=== PATIENT | female | born 1955 | race Caucasian/White ===

== ENCOUNTER → 2020-09-28 14:24 | Outpatient (CLI) | payer OTHER, SELFPAY | PROVIDERS: PCP Family Medicine; Visit Provider Family Medicine | DX: Z20.828 Contact with and (suspected) exposure to other viral communicable diseases (principal); U07.1 COVID-19 | CPT/HCPCS: U0003 ==

== ENCOUNTER 2024-02-19 15:14 | Outpatient (CLI) | payer MEDICARE, SELFPAY | END 2024-02-19 23:59 | disposition home or self-care (01) | LOC: LAB.DROPOF 15:17 | PROVIDERS: PCP Family Medicine; Visit Provider Family Medicine | DX: R19.7 Diarrhea, unspecified (principal); Z53.09 Procedure and treatment not carried out because of other contraindication | CPT/HCPCS: 87506 ==

== ENCOUNTER 2025-02-28 21:23 | Emergency (ER) | payer MEDICARE, SELFPAY ==
[2025-02-28 21:41] VITALS: BP 142/69; PULSE 103; RESP 18; TEMP 36.5; O2SAT 103; BMI 32.8
--- NOTE | 2025-02-28 21:46 | ED_ITS ---
Discharge Plan Disposition Patient Disposition: Home, Self-Care Prescriptions Prescriptions: New ondansetron 4 mg tablet,disintegrating 4 mg PO Q6H PRN (Reason: nausea and vomiting) Qty: 10 0RF Referrals Follow up/Referrals: Haylie Srinivasan MD [Primary Care Provider] - See instructions Activity Restrictions/Add. Instructions Additional Instructions/Restrictions: Call your family doctor to establish care for this visit to the emergency department and schedule follow-up within 48 hours to ensure improvement. If you have any worsening of your condition or any other concerning signs or symptoms, return to the emergency department or your primary care doctor for further evaluation. Zofran every 6 hours as needed for nausea and vomiting Clinical Impressions Clinical Impression: Gastroenteritis Instructions Patient Instructions: DI for Diarrhea and Traveler's Diarrhea -- Adult, DI for Diarrhea and Traveler's Diarrhea -- Child, DI for Nausea -- Adult, DI for Nausea -- Child Print Language Print Language: Turkmen Discharge ED Provider: Ton Cornelius General Adult HPI <Sarahy Marie (ED), DIRECTOR COMPENSATION - Last Filed: 02/28/25 21:55> General Chief complaint: Nausea/Vomiting/Diarrhea Stated complaint: d/v, lightheaded, passing out, diabetic Time Seen by Provider: 02/28/25 21:37 History of Present Illness HPI narrative: 69-year-old female presents to the ED today for complaint of nausea, vomiting and diarrhea since 3 PM today. She says she thought she had food poisoning with a visitor with her had all the same food that she did and she is not sick. Patient complains of upper abdominal pain as well. Patient does take Mounjaro and takes her shot on Wednesdays. She did take her shot on Saturday but has not had any pain until today at 3:00. Patient does look unwell. Patient has history of diabetes. No other symptoms today. No other complaint of pain. Related Data Previous Rx's ?Medication ?Instructions ?Recorded ondansetron 4 mg disintegrating 4 mg PO Q6H PRN nausea and 02/28/25 tablet vomiting #10 tabs Allergies Allergy/AdvReac Type Severity Reaction Status Date / Time codeine Allergy Unknown Verified 02/28/25 22:01 allergy reaction PFSH <Sarahy Marie (ED), DIRECTOR COMPENSATION - Last Filed: 02/28/25 21:55> [facility] Disclaimer: The information contained in this section may have been updated after the patient was seen, as this information can be updated by other users. Social History (Updated 02/28/25 @ 21:55 by Sarahy Marie (ED), DIRECTOR COMPENSATION) Smoking Status: Never smoker alcohol intake: never current occupational status: employed Travel in the last 8 weeks?: None Have you lived/traveled outside [place] in past 30 days?: No Contact w/someone who lives/traveled outside [place] past 30 days?: No Exposure to someone with infectious disease in past 14 days?: No Do you have a fever (greater than 100.4 F or 38 C)?: No Have you tested positive for COVID-19?: No Exposed to someone with COVID-19 in past 14 days?: No Do you have a sore throat?: No Do you have a cough?: No Do you have any weakness?: No Do you have any diarrhea?: No Are you experiencing any unusual bleeding?: No Do you have any muscle aches/pain?: No Do you have any abdominal pain?: No Are you experiencing loss of taste or smell?: No <Sarahy Marie (ED), DIRECTOR COMPENSATION - Last Filed: 02/28/25 21:55> ROS Obtained: Yes Systems reviewed as appropriate & no additional complaints except as documented Constitutional Constitutional: Reports as per HPI Physical Exam <Sarahy Marie (ED), DIRECTOR COMPENSATION - Last Filed: 02/28/25 21:55> General General appearance: alert and in distress Head Head exam: normocephalic Eye Eye exam: Present PERRL and EOMI ENT ENT exam: Present normal oropharynx and mucous membranes moist Neck Neck exam: Present full ROM and trachea midline Respiratory Respiratory exam: Present normal lung sounds bilaterally Cardiovascular Cardiovascular exam: Present regular rate, normal rhythm, normal heart sounds, +S1 and +S2 Abdominal Exam Abdominal exam: Present soft, tenderness and normal bowel sounds Abdominal tenderness: Present diffuse Extremities Exam Extremities exam: Present full ROM and normal capillary refill Neurological Exam Neurological exam: Present alert, oriented X3 and normal gait Skin Skin exam: Present warm, dry and intact Medical Decision Making <Sarahy Marie (ED), DIRECTOR COMPENSATION - Last Filed: 02/28/25 21:55> Medical Records Screening: Per USPSTF and CDC recommendations, given the prevalence of disease in our region, it is our hospital?s policy to screen for HIV and viral Hepatitis for all patients aged 18 and over and those with ongoing risk factors. Bogdan Inquiry Pt receiving controlled substance: No Bogdan was queried for this patient: No Vital Signs: 02/28/25 21:41 02/28/25 22:00 02/28/25 22:30 Temperature 97.7 F Temperature Source Oral Pulse Rate 98 H 97 H Pulse Rate [Left] 103 H Respiratory Rate 18 Blood Pressure 141/86 H 164/84 H Blood Pressure [Right Arm] 142/69 H Blood Pressure Mean 102 Blood Pressure Mean [Right Arm] 93 Blood Pressure Source [Right Arm] Automatic Cuff Blood Pressure Position [Right Arm] Supine 02 Sat by Pulse Oximetry 103 H 98 95 Oxygen Delivery Method Room Air Lab Data Lab Results 02/28/25 22:03: WBC 11.5 H, RBC 5.14, Hgb 15.5, Hct 45.0, MCV 87.5, MCH 30.2, MCHC 34.4, RDW 13.1, Plt Count 234, MPV 11.4 H, Neut % (Auto) 90.7 H, Lymph % (Auto) 3.6 L, Mclennan % (Auto) 4.5, Eos % (Auto) 0.6, Baso % (Auto) 0.3, Neut # (Auto) 10.4 H, Lymph # (Auto) 0.4 L, Mclennan # (Auto) 0.5, Eos # (Auto) 0.1, Baso # (Auto) 0.0, Total Counted 100, Neutrophils % (Manual) 90 H, Lymphocytes % (Manual) 5 L, Monocytes % (Manual) 5, Platelet Estimate Normal, RBC Morphology Normal, Sodium 138, Potassium 3.5, Chloride 102, Carbon Dioxide 27, Anion Gap 12.5, BUN 23 H, Creatinine 0.70, Estimated Creat Clear 68, Estimated GFR 83, Est GFR ( Amer) 101, Glucose 172 H, Calcium 9.4, Magnesium 1.3 L, Total Bilirubin 1.0, AST 44 H, ALT 30, Alkaline Phosphatase 103, Troponin I < 0.01, Total Protein 7.8, Albumin 4.6, Globulin 3.2, Albumin/Globulin Ratio 1.4, Lipase 114 02/28/25 22:03 02/28/25 22:03 Orders (Tests/Meds): ED MEDICATIONS Generic Name Dose Route Start Last Admin Trade Name Frealvaro PRN Reason Stop Dose Admin Sodium Chloride 8 ml 02/28/25 21:42 02/28/25 22:02 Sodium Chloride 0.9% 10ml Vial IV 03/30/25 21:41 8 ml NEEDED PRN Administration dilute pepcid Discontinued Medications Generic Name Dose Route Start Last Admin Trade Name Freq PRN Reason Stop Dose Admin Famotidine 20 mg 02/28/25 21:42 02/28/25 22:02 Famotidine 20mg/2ml Vial IV 02/28/25 21:43 20 mg ONCE ONE Administration Sodium Chloride 1,000 mls @ 999 mls/hr 02/28/25 21:42 02/28/25 22:02 Sod Chlor 0.9% 1000ml Bag IV 02/28/25 22:42 999 mls/hr .Q1H1M ONE Administration Ketorolac Tromethamine 30 mg 02/28/25 21:45 02/28/25 22:02 Ketorolac 30mg/Ml Vial IV 02/28/25 21:46 30 mg ONCE ONE Administration Ondansetron HCl 4 mg 02/28/25 21:42 02/28/25 22:02 Ondansetron 4mg/2ml Vial IV 02/28/25 21:43 4 mg ONCE ONE Administration ORDERS Category Date Time Status CBC [Complete Blood Count Auto Diff] Stat Lab 02/28/25 22:03 Completed Comprehensive Metabolic Panel Stat Lab 02/28/25 22:03 Completed Full Resp Panel w/COVID ([facility]) Routine Lab 02/28/25 22:11 Ordered Lipase Stat Lab 02/28/25 22:03 Completed Magnesium Stat Lab 02/28/25 22:03 Completed Trop I [Troponin I] Stat Lab 02/28/25 22:03 Completed Troponin I Q3H Lab 03/01/25 00:45 Ordered Troponin I Q3H Lab 03/01/25 03:45 Ordered Medical Decision Narrative: This is a 69-year-old female who presents to the ED today for evaluation of nausea, vomiting and diarrhea since about 3 PM today. She had some navy beans and potato salad and thought that she may have food poisoning. Patient arrives appearing ill. Vitals are stable and afebrile. Patient initial workup will include labs, respiratory panel. We will wait to decide on the imaging once labs return. Discussed plan with Dr. Cornelius as I am leaving for the shift. Patient will be taken over by him. Patient stable at this time. <Ton Cornelius MD - Last Filed: 02/28/25 23:25> Vital Signs: 02/28/25 21:41 02/28/25 22:00 02/28/25 22:30 Temperature 97.7 F Temperature Source Oral Pulse Rate 98 H 97 H Pulse Rate [Left] 103 H Respiratory Rate 18 Blood Pressure 141/86 H 164/84 H Blood Pressure [Right Arm] 142/69 H Blood Pressure Mean 102 Blood Pressure Mean [Right Arm] 93 Blood Pressure Source [Right Arm] Automatic Cuff Blood Pressure Position [Right Arm] Supine 02 Sat by Pulse Oximetry 103 H 98 95 Oxygen Delivery Method Room Air Lab Data Lab Results 02/28/25 22:03: WBC 11.5 H, RBC 5.14, Hgb 15.5, Hct 45.0, MCV 87.5, MCH 30.2, MCHC 34.4, RDW 13.1, Plt Count 234, MPV 11.4 H, Neut % (Auto) 90.7 H, Lymph % (Auto) 3.6 L, Mclennan % (Auto) 4.5, Eos % (Auto) 0.6, Baso % (Auto) 0.3, Neut # (Auto) 10.4 H, Lymph # (Auto) 0.4 L, Mclennan # (Auto) 0.5, Eos # (Auto) 0.1, Baso # (Auto) 0.0, Total Counted 100, Neutrophils % (Manual) 90 H, Lymphocytes % (Manual) 5 L, Monocytes % (Manual) 5, Platelet Estimate Normal, RBC Morphology Normal, Sodium 138, Potassium 3.5, Chloride 102, Carbon Dioxide 27, Anion Gap 12.5, BUN 23 H, Creatinine 0.70, Estimated Creat Clear 68, Estimated GFR 83, Est GFR ( Amer) 101, Glucose 172 H, Calcium 9.4, Magnesium 1.3 L, Total Bilirubin 1.0, AST 44 H, ALT 30, Alkaline Phosphatase 103, Troponin I < 0.01, Total Protein 7.8, Albumin 4.6, Globulin 3.2, Albumin/Globulin Ratio 1.4, Lipase 114 Orders (Tests/Meds): ED MEDICATIONS Generic Name Dose Route Start Last Admin Trade Name Frealvaro PRN Reason Stop Dose Admin Sodium Chloride 8 ml 02/28/25 21:42 02/28/25 22:02 Sodium Chloride 0.9% 10ml Vial IV 03/30/25 21:41 8 ml NEEDED PRN Administration dilute pepcid Discontinued Medications Generic Name Dose Route Start Last Admin Trade Name Freq PRN Reason Stop Dose Admin Famotidine 20 mg 02/28/25 21:42 02/28/25 22:02 Famotidine 20mg/2ml Vial IV 02/28/25 21:43 20 mg ONCE ONE Administration Sodium Chloride 1,000 mls @ 999 mls/hr 02/28/25 21:42 02/28/25 22:02 Sod Chlor 0.9% 1000ml Bag IV 02/28/25 22:42 999 mls/hr .Q1H1M ONE Administration Ketorolac Tromethamine 30 mg 02/28/25 21:45 02/28/25 22:02 Ketorolac 30mg/Ml Vial IV 02/28/25 21:46 30 mg ONCE ONE Administration Ondansetron HCl 4 mg 02/28/25 21:42 02/28/25 22:02 Ondansetron 4mg/2ml Vial IV 02/28/25 21:43 4 mg ONCE ONE Administration ORDERS Category Date Time Status CBC [Complete Blood Count Auto Diff] Stat Lab 02/28/25 22:03 Completed Comprehensive Metabolic Panel Stat Lab 02/28/25 22:03 Completed Full Resp Panel w/COVID ([facility]) Routine Lab 02/28/25 22:11 Ordered Lipase Stat Lab 02/28/25 22:03 Completed Magnesium Stat Lab 02/28/25 22:03 Completed Trop I [Troponin I] Stat Lab 02/28/25 22:03 Completed Troponin I Q3H Lab 03/01/25 00:45 Ordered Troponin I Q3H Lab 03/01/25 03:45 Ordered Medical Decision Narrative: This is a 69-year-old female who presents to the ED today for evaluation of nausea, vomiting and diarrhea since about 3 PM today. She had some navy beans and potato salad and thought that she may have food poisoning. Patient arrives appearing ill. Vitals are stable and afebrile. Patient initial workup will include labs, respiratory panel. We will wait to decide on the imaging once labs return. Discussed plan with Dr. Cornelius as I am leaving for the shift. Patient will be taken over by him. Patient stable at this time. I was consulted by the MARGY, and we discussed the complexity of the problems being addressed. I approved the treatment and management plan for this patient's care in the Emergency Department, thus performing a substantive portion of the medical decision making. On my evaluation, patient states she is feeling much better, ready to go. I feel this is appropriate. Hemodynamically stable and very pleasant. Independent interpretation of workup with mild leukocytosis, otherwise nonactionable findings on labs. Because patient at baseline without signs or symptoms of clinical decompensation, deemed appropriate for discharge. Results were relayed to patient who voiced understanding and were agreeable to outpatient management and follow up. I discussed my clinical impression with patient and answered all questions. At this time, the evidence for any other entities in the differential is insufficient to warrant any further testing or ED observation. This was explained as well. Advisory was given that persistent or worsening symptoms require further evaluation. I confirmed the understanding of this discussion. Ton Cornelius MD Critical Care <Sarahy Marie (ED), DIRECTOR COMPENSATION - Last Filed: 02/28/25 21:55> Critical Care Time Critical Care Time: No
[2025-02-28 22:00] VITALS: BP 141/86; PULSE 98; O2SAT 98
[2025-02-28] MEDS: SODIUM CHLORIDE 0.9% 10ML VIAL 8 ML IV (22:02)
[2025-02-28] MEDS: KETOROLAC 30MG/ML VIAL 30 MG IV (22:02)
[2025-02-28] MEDS: 0.9 % SODIUM CHLORIDE 1000ML 1,000 ML 999 ML IV (22:02)
[2025-02-28] MEDS: FAMOTIDINE 20MG/2ML VIAL 20 MG IV (22:02)
[2025-02-28] MEDS: ONDANSETRON 4MG/2ML VIAL 4 MG IV (22:02)
[2025-02-28 22:11] LABS: Basophils % 0.3 % (0.1-2.0); Eosinophils # 0.1 Kmm3 (0.0-0.4); Eosinophils % 0.6 % (0.1-12.0); Hemoglobin 15.5 g/dL (12.2-16.2); Immature Granulocytes # 0.04 10^3uL; Immature Granulocytes % 0.3 %; Lymphocytes # 0.4 K/mm3 (0.7-4.5); Lymphocytes % 3.6 % (10-50); Mean Corpuscular HGB Conc 34.4 g/dL (31.8-35.4); Mean Corpuscular Hemoglobin 30.2 pg (27.0-31.2); Mean Corpuscular Volume 87.5 fl (81-99); Mean Platelet Volume 11.4 fl (7.4-10.4); Monocytes # 0.5 K/mm3 (0.1-1.0); Monocytes % 4.5 % (1.7-9.3); Neutrophils # 10.4 K/mm3 (1.8-7.8); Neutrophils % 90.7 % (37.0-80.0); Nucleated Red Blood Cells # 0 10^3/uL; Nucleated Red Blood Cells % 0 %; Platelet Count 234 K/mm3 (142-424); Red Blood Count 5.14 M/mm3 (4.20-5.40); Red Cell Distribution Width 13.1 % (11.5-17.5); Red Cell Distribution Width-SD 41.7 fL; White Blood Count 11.5 K/mm3 (4.8-10.8)
[2025-02-28 22:12] LABS: MANUAL DIFFERENTIAL MANUAL DIFFERENTIAL (MANUAL DIFF)
[2025-02-28 22:21] LABS: Lymphocytes % 5 % (10-50); Monocytes % 5 % (2-9); Neutrophils % 90 % (42-76); Platelet Estimate Normal; RBC Morphology Normal; Total Cells Counted 100
[2025-02-28 22:22] LABS: Albumin Level 4.6 g/dl (3.5-5.0); Chloride 102 mmol/L (98-107); Sodium 138 mmol/L (136-145)
[2025-02-28 22:23] LABS: Potassium 3.5 mmoL/L (3.5-5.1)
[2025-02-28 22:25] LABS: Alanine Aminotransferase 30 U/L (12-78); Albumin/Globulin Ratio 1.4 (1.1-1.8); Alkaline Phosphatase 103 U/L (38-126); Anion Gap 12.5 mEq/L (5-15); Aspartate Amino Transferase 44 U/L (14-36); Blood Urea Nitrogen 23 mg/dl (7-17); Carbon Dioxide 27 mmol/L (22.0-30.0); Creatinine Clearance Estimated 68 mL/min (50-200); Estimated Glomerular Filt Rate 83 ml/min (>60); GFR (African American) 101 ML/MIN (>60); Globulin 3.2 g/dL (1.3-3.2); Total Protein,Serum 7.8 g/dl (6.3-8.2)
[2025-02-28 22:26] LABS: Calcium 9.4 mg/dl (8.4-10.2); Glucose 172 mg/dl (74-100); Lipase 114 U/L (23-300); Magnesium 1.3 mg/dl (1.6-2.3)
[2025-02-28 22:30] VITALS: BP 164/84; PULSE 97; O2SAT 95
[2025-02-28 22:38] LABS: Troponin I < 0.01 ng/ml (0.00-0.034)
[2025-02-28 23:26] VITALS: BP 130/70; PULSE 99; RESP 16; TEMP 36.8; O2SAT 99
== END 2025-02-28 23:31 | disposition home or self-care (01) ==
PROVIDERS: Nurse Practitioner; Emergency Provider Emergency Medicine; PCP Family Medicine
DX: R10.10 Upper abdominal pain, unspecified (principal); R11.2 Nausea with vomiting, unspecified; K52.9 Noninfective gastroenteritis and colitis, unspecified; R42 Dizziness and giddiness; E11.9 Type 2 diabetes mellitus without complications
CPT/HCPCS: 80053; 83690; 83735; 84484; 85007; 85025; 85027; 96361; 96374; 96375; 99284; J1885; J2405; J7030

== ENCOUNTER 2025-04-29 07:45 | Outpatient (CLI) | payer MEDICARE, SELFPAY ==
--- OUTSIDE RECORDS SUMMARY | 2025-04-29 07:46 | XMS_ITS | Clinical Summary ---
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 Name Role Phone Michelle Peraza APRN Primary Care Physician [phone] Conditions or Problems Problem Name Problem Code Onset Date Status Entry Date Provider Comment Standard Description Annotate Noncomplian ce 131000084 (SNOMED CT) 01/01 Active 01/01 Guerda Barry APRN Patient noncompliance - general Body mass index (BMI) 39.0-39.9; adult Z68.39 (ICD-10-CM ) 01/01 Active 01/01 Guerda Barry APRN Body mass index [BMI] 39.0-39.9, adult Body mass index (BMI) 37.0-37.9; adult Z68.37 (ICD-10-CM ) 06/14 Correction 06/14 Guerda Barry APRN Body mass index [BMI] 37.0-37.9, adult Hyperlipide ada 53916661 (SNOMED CT) 06/18 Active 06/18 Michelle Peraza APRN Hyperlipidemia Body mass index (BMI) 37.0-37.9; adult Z68.37 (ICD-10-CM ) 06/14 Removed 06/14 Michelle Peraza APRN Body mass index [BMI] 37.0-37.9, adult Body mass index (BMI) 37.0-37.9; adult Z68.37 (ICD-10-CM ) 06/14 Correction 06/14 Michelle Peraza APRN Body mass index [BMI] 37.0-37.9, adult Abnormal mammogram 713080593 (SNOMED CT) 06/14 Active 06/14 Michelle Stu [employer] Mammography abnormal Body mass index (BMI) 37.0-37.9; adult Z68.37 (ICD-10-CM ) 06/14 Removed 06/14 Michelle Mayeinger [employer] Body mass index [BMI] 37.0-37.9, adult Chlamydia cervicitis 896345436 (SNOMED CT) 11/08 Resolved 11/17 Michelle Mayeinger [employer] Chlamydial cervicitis B12 deficiency 442088699 (SNOMED CT) 11/26 Active 11/26 Elvira Tulsa [employer] Cobalamin deficiency Chlamydia cervicitis 881326983 (SNOMED CT) 11/08 Removed 11/17 Elvira Tulsa [employer] Chlamydial cervicitis Cutaneous candidiasis 52945169 (SNOMED CT) 11/08 Inactive 11/08 Elvira Enid [employer] Candidiasis of skin Hx of anemia 375212247 (SNOMED CT) 11/08 Active 11/08 Elvira Enid [employer] History of anemia Hypertensio n benign essential 0158688 (SNOMED CT) Active Elvira Tulsa [employer] Benign essential hypertension Well woman EXAM PAP/CBE 114904693 (SNOMED CT) 11/08 Inactive 11/08 Elvira Enid [employer] Well female adult Menopausal state 274392072 (SNOMED CT) 11/28 Active 11/28 Elvira Enid [employer] Menopause present Colon cancer screening 973092348 (SNOMED CT) 11/10 Inactive 11/10 Elvira Enid [employer] Screening for malignant neoplasm of colon Colon cancer screening 466167575 (SNOMED CT) 11/10 Removed 11/10 Elvira Tulsa [employer] Screening for malignant neoplasm of colon Followup examination 637286028 (SNOMED CT) 11/10 Inactive 11/10 Elvira Tulsa [employer] History and physical examination, follow-up Cardiopulmo nary arrest 319049409 (SNOMED CT) 11/03 Inactive 11/03 Elvira Enid [employer] Cardiorespirat ory arrest Morbid obesity 759585650 (SNOMED CT) 04/25 Active 04/25 Elvira Rossi APRN Morbid obesity HTN 61858730 (SNOMED CT) Inactive Elvira Rossi APRN Hypertensive disorder Hypertensio n 12453032 (SNOMED CT) Resolved Elvira Rossi APRN Hypertensive disorder DM, uncomplicat ed, type II 807104019 (SNOMED CT) Active Elvira Rossi APRN Type 2 diabetes mellitus without complication Hypertensio n 91123670 (SNOMED CT) Removed Elvira Rossi APRN Hypertensive disorder Medications Medication Instructions Start Date Stop Date Generic Name [facility] Provider JENTADUETO 2.5-1000 MG TABS ONE TAB PO DAILY 01/01 LINAGLIPTIN-METFOR MIN HCL [id number] Guerda Barry APRN JENTADUETO 2.5-1000 MG TABS 01/01 LINAGLIPTIN-METFOR MIN HCL 81343307541 Guerda Barry APRN JENTADUETO XR 5-1000 MG [id number] TAKE ONE TABLET BY MOUTH ONCE DAILY 06/18 LINAGLIPTIN-METFOR MIN HCL 00032033340 Guerda Barry APRN METFORMIN HCL ER 500 MG [id number] TAKE 2 TABLET(S) BY MOUTH BID 06/18 METFORMIN HCL 20226850151 Michelle Peraza APRN ATORVASTATIN CALCIUM 20 MG TABS TAKE 1 TABLET BY MOUTH AT BEDTIME 06/18 ATORVASTATIN CALCIUM 11697069289 Guerda Barry APRN PRAVASTATIN SODIUM 20 MG TABS TAKE 1 TABLET BY MOUTH AT BEDTIME FOR CHOLESTEROL D/C 10 MG DOSE 04/25 PRAVASTATIN SODIUM 95922547273 Michelle Peraza APRN JENTADUETO XR 5-1000 MG [id number] TAKE ONE TABLET BY MOUTH ONCE DAILY 06/18 LINAGLIPTIN-METFOR MIN HCL 00009116780 Michelle Peraza APRN TRADJENTA 5 MG TABS TAKE 1 TAB PO QD 06/18 LINAGLIPTIN 42380370718 Michelle Peraza APRN VITAMIN B-12 1000 MCG TABS TAKE 1 TABLET BY MOUTH ONCE A DAY 06/18 CYANOCOBALAMIN 01783993000 Guerda Barry APRN LISINOPRIL-HYDROCHLO ROTHIAZIDE 10-12.5 MG TABS TAKE 1 TABLET BY MOUTH 1 TIME A DAY 06/14 LISINOPRIL-HYDROCH LOROTHIAZIDE 25508172601 Guerda Barry APRN HYDROCHLOROTHIAZIDE 12.5 MG TABS TAKE 1 TABLET BY MOUTH 1 TIME A DAY 06/14 HYDROCHLOROTHIAZID E 88861000989 Michelle Peraza APRN LISINOPRIL 5 MG TABS TAKE 1 TABLET BY MOUTH 1 TIME A DAY 06/14 LISINOPRIL 11130335462 Michelle Peraza APRN LISINOPRIL 2.5 MG TABS TAKE 1 TABLET BY MOUTH 1 TIME A DAY TAKE WITH 5MG DOSE LISINOPRIL 11/08 LISINOPRIL 79045240081 Michelle Peraza APRN FLUCONAZOLE 200 MG TABS TAKE 1 TABLET BY MOUTH QD X 30 DAYS 11/26 FLUCONAZOLE 51685394853 Elvira Rossi APRN HYDROCHLOROTHIAZIDE 12.5 MG TABS TAKE 1 TABLET BY MOUTH 1 TIME A DAY HYDROCHLOROTHIAZID E 91053021034 Elvira Rossi APRN PRAVASTATIN SODIUM 20 MG TABS TAKE 1 TABLET BY MOUTH AT BEDTIME FOR CHOLESTEROL D/C 10 MG DOSE 04/25 PRAVASTATIN SODIUM 81525655435 Michelle Peraza APRN LISINOPRIL 5 MG TABS TAKE 1 TABLET BY MOUTH 1 TIME A DAY LISINOPRIL 22875680496 Elvira Rossi APRN FLUCONAZOLE 200 MG TABS TAKE 1 TABLET BY MOUTH EVERY DAY X 30 DAYS 11/08 FLUCONAZOLE 48633366493 Elvira Rossi APRN METRONIDAZOLE 500 MG TABS TAKE 1 TAB PO BID X 7 DAYS NO ALCOHOL USE WHILE TAKING MEDICATION 11/10 METRONIDAZOLE 96102465735 Elvira Enid MARCOSN AZITHROMYCIN 500 MG TABS TAKE 2 TABS PO X 1 DOSE 11/08 AZITHROMYCIN 80525297068 Elvira Rossi APRN AZITHROMYCIN 500 MG TABS TAKE 2 TABS PO X 1 DOSE 11/08 AZITHROMYCIN 48834293177 Elvira Rossi APRN METRONIDAZOLE 500 MG TABS TAKE 1 TAB PO BID X 7 DAYS NO ALCOHOL USE WHILE TAKING MEDICATION 11/10 METRONIDAZOLE 15743243768 Elvira Rossi APRN FLUCONAZOLE 200 MG TABS TAKE 1 TABLET BY MOUTH EVERY DAY X 30 DAYS 11/08 FLUCONAZOLE 03807671843 Elvira Rossi APRN NYSTATIN 903145 UNIT/GM POWD APPLY TO SKIN TID UNTIL RASH RESOLVED + 5 DAYS 11/08 NYSTATIN 85426922858 Elvira Rossi APRN LISINOPRIL 2.5 MG TABS TAKE 1 TABLET BY MOUTH 1 TIME A DAY TAKE WITH 5MG DOSE LISINOPRIL 11/08 LISINOPRIL 57823161621 Puja Sepulveda DO ACCU-CHEK COMPACT PLUS IN VITRO STRIP BS TESTING TID DX HYPOGLYCEMIA 07/13 GLUCOSE BLOOD 96121760337 Guerda Barry APRN CARVEDILOL 6.25 MG TABS TAKE 1/2 TABLET BY MOUTH Q AM & 1/2 TAB PO Q HS 04/25 CARVEDILOL 76721343866 Guerda Barry APRN HYDROCHLOROTHIAZIDE 12.5 MG TABS TAKE 1 TABLET BY MOUTH 1 TIME A DAY HYDROCHLOROTHIAZID E 61692114138 Elvira Rossi APRN LISINOPRIL 5 MG TABS TAKE 1 TABLET BY MOUTH 1 TIME A DAY LISINOPRIL 56944038352 Elvira Rossi APRN PHENTERMINE HCL 30 MG CAPS TAKE 1 CAP PO Q AM BMI 34 09/03 PHENTERMINE HCL 76156716447 Elvira Rossi APRN PHENTERMINE HCL 30 MG CAPS TAKE 1 CAP PO Q AM BMI 35.2 DX MORBID OBESITY 04/25 PHENTERMINE HCL 55042860344 Elvira Rosis APRN CARVEDILOL 6.25 MG TABS TAKE 1/2 TABLET BY MOUTH 2 TIMES A DAY 04/25 CARVEDILOL 84451184118 Elvira Rossi APRN TRADJENTA 5 MG TABS TAKE 1 TAB PO QD LINAGLIPTIN 62631072736 Michelle Peraza APRN PHENTERMINE HCL 30 MG CAPS TAKE 1 CAP PO Q AM BMI 34 PHENTERMINE HCL 61413559956 Elvira Rossi APRN ACCU-CHEK COMPACT PLUS IN VITRO STRIP TEST SUGAR ONCE A DAY 07/13 GLUCOSE BLOOD 73239904359 Elvira Nettlesron [employer] PHENTERMINE HCL 30 MG CAPS TAKE 1 CAP PO Q AM BMI 35.2 DX MORBID OBESITY 04/25 PHENTERMINE HCL 63780372632 Elviratuan NettlesTulsa [employer] CARVEDILOL 6.25 MG TABS TAKE 1 TABLET BY MOUTH 2 TIMES A DAY 04/25 CARVEDILOL 07291364845 Elvira Nettlesron [employer] PRAVASTATIN SODIUM 10 MG TABS TAKE 1 TABLET BY MOUTH AT BEDTIME FOR CHOLESTEROL 04/25 PRAVASTATIN SODIUM 29341191428 Elvira Tulsa [employer] LISINOPRIL-HYDROCHLO ROTHIAZIDE 20-25 MG TABS TAKE 1 TABLET BY MOUTH 1 TIME A DAY LISINOPRIL-HYDROCH LOROTHIAZIDE 15290979124 Elvira Rossi APRN METFORMIN HCL ER 500 MG [id number] TAKE 2 TABLET(S) BY MOUTH BID METFORMIN HCL 26437672205 Michelle Peraza APRN PHENTERMINE HCL 30 MG CAPS TAKE 1 CAP PO Q AM BMI 36.6 DX MORBID OBESITY 04/25 PHENTERMINE HCL 88369842423 Elviratuan Rossi APRN CARVEDILOL 6.25 MG TABS TAKE 1 TABLET BY MOUTH 2 TIMES A DAY 04/25 CARVEDILOL 27026140360 Elvira Enid [employer] PRAVASTATIN SODIUM 10 MG TABS TAKE 1 TABLET BY MOUTH AT BEDTIME FOR CHOLESTEROL 04/25 PRAVASTATIN SODIUM 31120510260 Elvira Tulsa [employer] PHENTERMINE HCL 15 MG CAPS TAKE 1 CAP PO Q AM BMI 38.9 04/25 PHENTERMINE HCL 52555581918 Elvira Tulsa [employer] LISINOPRIL-HYDROCHLO ROTHIAZIDE 20-25 MG TABS TAKE 1 TABLET BY MOUTH 1 TIME A DAY LISINOPRIL-HYDROCH LOROTHIAZIDE 78827731059 Elvira Tulsa [employer] METFORMIN HCL ER 500 MG [id number] TAKE 2 TABLET(S) BY MOUTH QD METFORMIN HCL 84836040332 Elvira Tulsa [employer] LEVEMIR FLEXPEN 100 UNIT/ML SUBCUTANEOUS SOLUTION PEN-INJECTOR INJECT 12 UNITS EVERY NIGHT 04/03 INSULIN DETEMIR 98173436900 Elvira Enid [employer] Medication excluded from report: LEVEMIR FLEXPEN 100 UNIT/ML SUBCUTANEOUS SOLUTION PEN-INJECTOR INJECT 12 UNITS EVERY NIGHT INSULIN DETEMIR 67388955589 Elvira Enid [employer] METFORMIN HCL ER 500 MG [id number] TAKE 2 TABLET(S) BY MOUTH 2 TIME A DAY METFORMIN HCL 24923361351 Elvira Tulsa [employer] LISINOPRIL-HYDROCHLO ROTHIAZIDE 20-25 MG TABS TAKE 1 TABLET BY MOUTH 1 TIME A DAY LISINOPRIL-HYDROCH LOROTHIAZIDE 76352793562 Elvira Tulsa [employer] Medications Administered No information available. Allergies, Adverse Reactions, Alerts Allergy Name Reaction Description Start Date Severity Statu s Provider CODEINE Critical Active Elvira Catr on [employer] Results Date Name Value Unit Range Flag Description Office Visit: ESTABLISH CARE , DM II, HTN LDL GOAL <70 mg/dL LDL target l evel Lab Report: COMPREHENSIVE ME TABOLIC PANEL, CBC (INCLUDES DIFF/PLT), TSH ... VIT D 25-OH 18 ng/mL 30-100 L 25-Hydrox ycalcifero l [Mass/volume] in Serum or Plasma TSHREFLX FT4 1.00 m[iU]/L 0.40-4.50 N TSH (t hyroid stimulating hormone) with reflex FT4 BG RANDOM 290 mg/dL 65-99 H Glucose [Mass/volume] in Blood Lab Report: LIPID PANEL WITH REFLEX TO DIRECT LDL, LIPID PANEL WITH REFL ... TRIGLYCRDES 156 mg/dL <150 H Triglycer jignesh [Mass/volume] in Serum or Plasma - mg/dL B12 293 pg/mL 200-1100 N Cobalamin (V itamin B12) [Mass/volume] in Serum or Plasma FERRITIN 135 ng/mL 10-232 N Ferritin [Mass/volume] in Serum or Plasma IRON SATUR % 21 % (CALC) % 11-50 N Iron saturation [Mass Fraction] in Serum or Plasma IRON 69 ug/dL 45-160 N Iron [Mass/vo lume] in Serum or Plasma Office Visit: FOLLOW UP DM A ND HTN NEEDS REFIFLLS URINE IN CHART S1 SPEC GR URIN 1.020 Specific gravity of Urine by Test strip PH URINE 5.5 pH of Urine by Test strip APPEARANCE U clear Appearan ce of Urine UA COLOR yellow Color of Uri ne MICROALB TST NORMAL mg/dL Microalb umin [Mass/volume] in Urine GENO/UR CR RT <30 mg/L microalb umin/creati nine ratio, urine CREATIN UR 100 mg/dL Creatinine [Mass/volume] in Urine ALBUMIN, UR 10 % albumin, urine GLUCOSE, URN negative Glucose [Mass/volume] in Urine by Test strip BILIRUBIN UR negative Bilirub in.total [Presence] in Urine by Test strip KETONES URN negative Ketones [Mass/volume] in Urine by Test strip BLOOD UR DIP TRACE blood in urine (hemoglobin) by dipstick PROTEIN, URN negative protein , urine, semiquantitative (dipstick) UROBILINOGEN negative Urobili nogen [Presence] in Urine by Test strip NITRITE URN negative Nitrite [Presence] in Urine by Test strip WBC DIPSTK U negative Leukocy te esterase [Presence] in Urine by Test strip Lab Report: LIPID PANEL WITH REFLEX TO DIRECT LDL, LIPID PANEL WITH REFL ... BASO % MANU 0.7 % N basophils as percent of blood leukocytes, manual count EOS % MANU 1.7 % N eosinophil s as percent of blood leukocytes, manual count MONOCYTE % 8.3 % N Monocytes/ 100 leukocytes in Blood by Automated count LYMPH% P BLD 22.1 % N lymphocy gaye as percent of blood leukocytes PMN % 67.2 % N Neutrophils/1 00 leukocytes in Blood by Automated count ABS BASOS 51 {Cells}/ uL 0-200 N Basophils [#/volume] in Blood ABS EOS 124 {Cells}/ uL 15-500 N Eosinophils [#/volume] in Blood ABS MONOS 606 {Cells}/ uL 200-950 N Monocytes [#/volume] in Blood ABSLYMPHCT 1613 {Cells}/ uL 850-3900 N Lymphocytes [#/volume] in Blood ABS NEUTROPH 4906 CELLS/UL 10*3/uL 0325-3814 N Neutrophils [#/volume] in Blood MPV 11.1 fL 7.5-12.5 N Platelet vivienne n volume [Entitic volume] in Blood by Tierney PLATELETK/UL 260 THOUSAND/UL 10*3/uL 140-400 N platelet count RDW 12.9 % 11.0-15.0 N Erythrocyte distribution width [Ratio] by Automated count OL-MCHC 34.2 g/dL 32.0-36.0 N mean corpus cular hemoglobin concentration, rbc MCH 29.3 pg 27.0-33.0 N MCH [Entiti c mass] by Automated count MCV 85.9 fL 80.0-100. 0 N MCV [Entitic volume] by Automated count HCT 40.7 % 35.0-45.0 N Hematocrit [Volume Fraction] of Blood by Automated count HGB 13.9 g/dL 11.7-15.5 N Hemoglobin [Mass/volume] in Blood RBC M/UL 4.74 MILLION/UL 10*6/uL 3.80-5.10 N red blood count WBC CT BLOOD 7.3 10*3/uL 3.8-10.8 N leukocy te count, blood TSH 1.27 u[iU]/mL 0.40-4.50 N Thyrotropi n [Units/volume] in Serum or Plasma HGBA1C 6.1 % OF TOTAL HGB % <5.7 H Hemoglobin A1c/Hemoglobin, total in Blood - % SGPT (ALT) 11 U/L 6-29 N Alanine aminotransferase [Enzymatic activity/volume] in Serum or Plasma SGOT (AST) 15 U/L 10-35 N Aspartate aminotransferase [Enzymatic activity/volume] in Serum or Plasma ALK PHOS 77 U/L 33-130 N Alkaline phosphatase [Enzymatic activity/volume] in Blood BILI TOTAL 0.5 mg/dL 0.2-1.2 N Bilirubin. total [Mass/volume] in Serum or Plasma A/G RATIO 1.3 (calc) 1.0-2.5 N Albumin/ Globulin [Mass Ratio] in Serum or Plasma GLOBULIN TOT 3.0 G/DL (CALC) g/dL 1.9-3.7 N Globulin [Mass/volume] in Serum ALBUMIN EOP 4.0 g/dL 3.6-5.1 N Albumin [Mass/volume] in Serum or Plasma by Electrophoresis PROTEIN, TOT 7.0 g/dL 6.1-8.1 N Protein [Mass/volume] in Serum or Plasma CALCIUM 9.6 mg/dL 8.6-10.4 N Calcium [Moles/volume] in Serum or Plasma CO2 26 mmol/L 20-31 N Carbon dioxid e, total [Moles/volume] in Venous blood CHLORIDE BLD 106 mmol/L 98-110 N chloride , blood POTASSIUM 4.1 mmol/L 3.5-5.3 N Potassium [Moles/volume] in Serum or Plasma SODIUM 141 mmol/L 135-146 N Sodium [Moles/volume] in Serum or Plasma BUN/CREAT NOT APPLICABLE (calc) 6-22 Urea nitrogen/Creatinine [Mass Ratio] in Serum or Plasma EGFR IF AFA 109 mL/min/1 .73m2 >OR = 60 N Glomerular filtration rate/1.73 sq M.predicted among blacks [Volume Rate/Area] in Serum, Plasma or Blood by Creatinine-based formula (MDRD) EGFR 94 mL/min/1 .73m2 >OR = 60 N Glomerular filtration rate/1.73 sq M.predicted [Volume Rate/Area] in Serum, Plasma or Blood by Creatinine-based formula (MDRD) CREATININE 0.70 mg/dL 0.50-0.99 N Creatini ne [Mass/volume] in Serum or Plasma BUN 18 mg/dL 7-25 N Urea nitrogen [Mass/volume] in Serum or Plasma GLUCOSE SER 153 mg/dL 65-99 H Glucose [Mass/volume] in Serum or Plasma NON-HDL CHOL 183 MG/DL (CALC) mg/dL <130 H cholesterol, non-HDL, total CHOL/HDL % 4.0 (calc) <5.0 N cholest shamika/HDL ratio, serum, percent LDL 160 MG/DL (CALC) mg/dL H Cholesterol in L DL [Mass/volume] in Serum or Plasma - mg/dL TRIGLYC TOT 110 mg/dL <150 N Triglycer jignesh [Mass/volume] in Serum or Plasma - mg/dL HDL 62 mg/dL >50 N Cholesterol i n HDL [Mass/volume] in Serum or Plasma - mg/dL CHOLESTEROL 245 mg/dL <200 H Cholester ol [Mass/volume] in Serum or Plasma - mg/dL Plan of Care Type Date Detail Referral Endocrinology Re ferral General [facility], [address] [place] [address] Rd, [address], [place], [address] Referral Podiatry Referra l [facility], [address] [place] [address] [address], [place], [address] Referral Podiatry Referra l [facility], [address] [place] [address] [address], [place], [address] Referral excluded fr om report: Referral Endocrinology Re [place] [id number] [facility], [place], [address] Referral excluded fr om report: Referral [facility], [address] [facility] [address], [place], [address] Referral [facility], [address] [facility] [address], [place], [address] Referral excluded fr om report: Pending order T1 CMP Pending order T1 CBC with diff Pending order T1 HGBA1c Pending order T1 TSH reflex to free T4 Pending order T1 Lipid Panel Pending order Microalbumin (w creatinine) 80340 Pending order Microalbumin (w creatinine) 20070 Pending order T1 CBC with diff Pending order T1 CMP Pending order T1 HGBA1c Pending order T1 Lipid Panel Pending order T1 TSH reflex to free T4 Pending order Mammogram Diagno stic Pending order CMP Pending order HGBA1c Pending order Vitamin B-12 up to 1000 mcg Pending order Urine Dip Auto 8 1003 Pending order B12 Pending order BV Yeast Trich C ulture (Affirm) Pending order CBC with diff Pending order CMP Pending order HGBA1c Pending order Lipid Panel Pending order RPR w/ reflex to titer & confirmation Pending order ThinPrep Pap w r eflex HR HPV/GC/Chlamydia mRNA E6/E7 Pending order TIBC w iron leve l Pending order TSH reflex to fr ee T4 Pending order Urine Culture Pending order Other Pending order Dexascan Density Axial Skeleton Pending order Other Pending order Mammogram Pending order ECG 12+ leads; w read & rpt (Don't use for Mcare) 42739 Pending order Microalbumin (w creatinine) 96294 Pending order CMP Pending order HGBA1c Pending order Lipid Panel Pending order Medication Recon ciliation Pending order Medication Recon ciliation Pending order Urine Drug Scree n w/o Confirmation Pending order Medication Recon ciliation Pending order CBC with diff Pending order CMP Pending order HGBA1c Pending order Lipid Panel Pending order TSH reflex to fr ee T4 Pending order Lipid Panel Pending order Lipid Panel Pending order SNOMED-CT: 50425 007 Physical Exam, Performed: Pulse Exam of Foot Pending order SNOMED-CT: 25106 [id number] Current Medications Documented Pending order CBC with diff Pending order CMP Pending order HGBA1c Pending order TSH reflex to fr ee T4 Pending order Vitamin D 25 Hyd christel Pending order SNOMED-CT: 08435 007 Physical Exam, Performed: Pulse Exam of Foot Pending order SNOMED-CT: 12419 [id number] Current Medications Documented Patient education Medications Patient education Medications Patient education Patient Educat ion Given Patient education Medications Patient education Patient Educat ion Given Patient education Medications Patient education Medications Patient education Patient Educat ion Given Patient education Medications Patient education Medications Patient education Patient Educat ion Given Patient education Medications Patient education Medications Patient education Patient Educat ion Given Patient education Medications Patient education Medications Patient education Medications Patient education Medications Patient education Medications Patient education Medications Patient education Patient Educat ion Given Patient education Medications Patient education Patient Educat ion Given Patient education Medications Patient education Medications Patient education Medications Patient education Medications Patient education Medications Patient education Medications Patient education Medications Patient education Medications Patient education Medications Patient education Medications Patient education Medications Patient education Medications Patient education Medications Patient education Medications Patient education Medications Patient education Medications Patient education Medications Patient education Medications Patient education Medications Patient education Medications Patient education Medications Patient education Medications Patient education Medications Patient education Medications Patient education Medications Patient education Medications Patient education Medications Patient education Medications Patient education Medications Patient education Medications Patient education Medications Patient education Medications Patient education Medications Patient education Medications Patient education Medications Patient education Medications Patient education Medications Patient education Medications Patient education Medications Procedures Code Procedure Name Date Entry Date CPT-3077F Most recent systolic blood pressure >=140 mm Hg CPT-3079F Most recent diastolic blood pressure 80-8 9 mm Hg CPT-60214 Microalbumin (w creatinine) 14910 Podiatry Podiatry Referral General 20 29/12/20 ENDO GEN Endocrinology Referral [facility] 82627 T1 CMP [facility] 6399 T1 CBC with diff [facility] 496 T1 HGBA1c [facility] 23569 T1 TSH reflex to free T4 201 05/16/21 [facility] 29418 T1 Lipid Panel SCT-[id number] Medication Reconciliation CPT-3077F Most recent systolic blood pressure >=140 mm Hg CPT-3079F Most recent diastoli c blood pressure 80-89 mm Hg SCT-980301504 Diabetic foot examination 2 SCT-301177288 Monofilament foot sensation test SCT-57003301 Pedal pulse taking 1 CPT-68327 Microalbumin (w creatinine) 05436 Mammo DX GIO Mammogram Diagnostic [facility] 6399 T1 CBC with diff [facility] 53948 T1 CMP [facility] 496 T1 HGBA1c [facility] 47231 T1 Lipid Panel [facility] 56241 T1 TSH reflex to free T4 201 04/21/01 SCT-[id number] Medication Reconciliation IMM-ORDER Injection(s) Ordered CPT-J3420 Vitamin B-12 up to 1000 mcg 58040 [facility] # CMP 3 496 [facility] # HGBA1c CPT-75255 Urine Dip Auto 24718 927 [facility] # B12 6399 [facility] # CBC with diff 6 19611 [facility] # CMP 6 496 [facility] # HGBA1c 84841 [facility] # Lipid Panel 6 [facility] # RPR w/ reflex to titer & confirmati on 7573 [facility] # TIBC w iron level 11/08 [facility] # TSH reflex to free T4 395 [facility] # Urine Culture Other [facility] Other 12144 [facility] # BV Yeast Trich Culture (Affirm) 201 04/13/26 [facility]# 45271 ThinPrep Pap w refle x HR HPV/GC/Chlamydia mRNA E6/E7 SCT-[id number] Medication Reconciliation DXA LUMBAR GIO Dexascan Density Axial Skeleton SCT-[id number] Medication Reconciliation Other [facility] Other SCT-[id number] Medication Reconciliation Mammo GIO Mammogram SCT-290586904231879 Medication Reconciliation CPT-98397 Pulse Ox for O2 Saturation; single 59316 CPT-53213 ECG 12+ leads; w isac d & rpt (Don't use for Mcare) 27188 SCT-[id number] Medication Reconciliation CPT-66700 Prevnar 13 Intramuscular Suspension 08/02 CPT-68329 Fluzone Quadrivalent Preservative Free Intramuscular Suspension 0.5 ML CPT-03917 IMADM >18YR IM ROUTE 1ST VAC/TOXOID 08/02 CPT-10069 IMADM >18YR IM ROUTE EA ADDL VAC/TOXOID 2 CPT-61257 Microalbumin (w creatinine) 03134 SCT-[id number] Medication Reconciliation CPT-22301 Venipuncture 84434 5 16948 [facility] # CMP 5 496 [facility] # HGBA1c 05532 [facility] # Lipid Panel 5 SCT-[id number] Medication Reconciliation SCT-932228435594747 Medication Reconciliation 46478 [facility] # Urine Drug Screen w/o Confirmation CPT-90275 Venipuncture 26441 1 SCT-909281864755585 Medication Reconciliation 6399 [facility] # CBC with diff 1 03826 [facility] # CMP 1 496 [facility] # HGBA1c 95100 [facility] # Lipid Panel 1 54610 [facility] # TSH reflex to free T4 Podiatry [facility] 1 SCT-37327716 SNOMED-CT: 15130336 Physical Exam, Performed: Pulse Exam of Foot SCT-[id number] SNOMED-CT: 800011459 948427 Current Medications Documented 21088 [facility] # Lipid Panel 2 [id number]-[id number] Venipuncture [id number] [facility] # CBC with diff 4 [id number] [facility] # CMP 4 496 [facility] # HGBA1c 36229 [facility] # TSH reflex to free T4 57091 [facility] # Vitamin D 25 Hydroxy 2 [id number] SNOMED-CT: [id number] Physical Exam, Performed: Pulse Exam of Foot [id number] SNOMED-CT: [id number] Current Medications Documented Vital Signs Date Name Value Unit Description BMI (Body Mass Index) 39.74 kg/m2 Bod y Mass Index (Ratio) Body Temperature 97.8 [degF] temperat ure E&M Body Temperature 36.56 Lolita temperat ure in centigrade E&M BP Diastolic 85 mm[Hg] blood pressu re, diastolic BP Systolic 158 mm[Hg] blood pressur e, systolic BSA (Body Surface Area) 2.07 b toño surface area Heart Rate 72 /min pulse rate Height 62 [in_us] height E&M Height 157.48 cm height in cent imeters E&M Respiratory Rate 16 /min respirat ory rate E&M Weight Measured 98.41 kg weight in kilograms E&M Weight Measured 216.5 [lb_av] weight E& M Weight Measured 216.5 [lb_av] weight E& M BP Diastolic 88 mm[Hg] blood pressu re, diastolic, second observation BP Systolic 138 mm[Hg] blood pressur e, systolic, second observation Heart Rate 84 pulse rate #2 Immunizations Vaccine Administration Date Standard Description CVX Co de Dose Fluzone Preservative Free Intramuscular Suspension 36mo+ 0.5ml Fluzone Preservative Free Intramuscular Suspension 36mo+ 0.5ml 140 0.5 mL Prevnar 13 Intramuscular Suspension Prevnar 13 Intramuscular Suspension 133 0.5 ML Advance Directives No information available.
--- OUTSIDE RECORDS SUMMARY | 2025-04-29 07:47 | XMS_ITS | Clinical Summary ---
Author Organization Healthcare Address [address] [place] [address] Care Team Providers Care Rehabilitation Clerk Name Role Phone Unavailable Primary Care Provider Unavailabl e Allergies Active Allergy Reactions Criticality Noted Date Comments Codeine Nausea,Other - pleas e document in the comment field Low 12/03/2018 Medications cyanocobalamin (Vitamin B-12) 1000 MCG tablet 12/04/2018 Act cecelia glipiZIDE (Glucotrol) 5 MG tablet Active metFORMIN (Glucophage) 1000 MG tablet TAKE 1 TABLET TWICE DAILY WITH FOOD. 12/29/2019 Active ramipril (Altace) 2.5 MG capsule Active chlorthalidone (Hygroton) 25 MG tablet Take 1 tablet daily 12/29/2019 Active atorvastatin (Lipitor) 80 MG tabletIndication s:Renal artery stenosis (CMS/HCC) Take 1 tablet (80 mg total) by mouth every night. 30 tablet 5 07/30/2022 Active Active Problems Problem Noted Date Diagnosed Date Renal artery stenosis 07/30/2022 Immunizations Immunization Administration Dates Next Due Influenza, injectable, quadrivalent, preservativ e free 08/13/2018 Family History Medical History Relation Name Comments Diabetes Brother 1 Other cancer Brother 2 Cardiac disorder Other 1 Diabetes Other 2 Cholelithiasis Other 3 Hypertension Other 4 Other cancer Other 5 Obesity Other 6 Sleep apnea Other 7 Relation Name Status Comments Brother 1 Brother 2 Other 1 Other 2 Other 3 Other 4 Other 5 Other 6 Other 7 Social History Tobacco Use Types Packs/Day Years Used Date Smoking Tobacco: Former Smokeless Tobacco: Never Tobacco Cessation:Counseling Given: Not Answered Alcohol Use Standard Drinks/Week Comments Never 0 (1 standard drink = 0.6 oz pur e alcohol) PHQ-2 Answer Date Recorded Patient Health Questionnaire-2 Score 0 07/30/2022 Comments Unknown Sex and Gender Information Value Date Recorded Sex Assigned at Not on file Legal Sex Female 7:45 PM EDT Gender Identity Not on file Sexual Orientation Not on file Last Filed Vital Signs Vital Sign Reading Time Taken Comments Blood Pressure 174/86 07/30/2022 8:05 AM EDT Pulse 74 07/30/2022 8:04 AM EDT Temperature 35.9 C (96.6 F) 07/30/2022 8:04 AM EDT Respiratory Rate 18 12/17/2019 12:59 PM EST Oxygen Saturation - - Inhaled Oxygen Concentration - - Weight 87.7 kg (193 lb 5.5 oz) 07/30/2022 8:04 A M EDT Height 154.9 cm (5' 1 ) 07/30/2022 8:04 AM EDT Body Mass Index 36.53 07/30/2022 8:04 AM EDT Plan of Treatment Health Maintenance Due Date Last Done Comments [facility]-Infant/Child/Adol SDOH Screenings 1957 [facility]- SDOH Screenings 1975 [facility]-Adult SDOH Screenings 1975 [facility]-DTaP,Tdap,and Td Vaccine s (1 - Tdap) 1976 CT Colonography 2002 Colonoscopy 2002 FIT-DNA 2002 FIT 2002 FOBT 2002 Sigmoidoscopy 2002 [facility]-Colorectal Cancer Screening 2002 [facility]-Zoster Vaccines (1 of 2) 2007 [facility]-Pneumococcal Vaccine: 50 + Years (2 of 2 - PPSV23) 08/02/2017 08/02/2016 [facility]-Bone Density Scan 11/08/2018 11/08/2016 [facility]-Breast Cancer Screening 11/21/2018 02/0 05/2017, 11/08/2016 [facility]-Depression Screening 07/30/2023 07/30/2022 [id number] Vaccine (3 - season) 2024 05/29/2021, 05/01/2021 [facility]-Influenza Vaccine (#1) 2025 08/13/2018 [facility]-RSV Vaccine: 60+ Years o r (1 - 1-dose 75+ series) 2032 [facility]-Hepatitis C Screening Completed 2018, 11/11/2018 [facility]-Obesity Intervention Completed 07/30/2022 HPV Vaccines Aged Out No longer eligi ble based on patient's age to complete this topic [facility]-HIB Vaccines Aged Out No longer e ligible based on patient's age to complete this topic [facility]-Hepatitis A Vaccines Aged Out No longer eligible based on patient's age to complete this topic [facility]-IPV Vaccines Aged Out No longer e ligible based on patient's age to complete this topic [facility]-Rotavirus Vaccines Aged Out No lo nger eligible based on patient's age to complete this topic Procedures Procedure Name Priority Date/Time Associated Diagnosis Comments HEPATITIS C ANTIBODY - ED W/REFLEX TO HCV QUANT PCR Routine 12/03/2018 12:55 PM EST from Last 3 Months or Most Recently Relevant to Health Maintenance Results * Armando Hepatitis C Antibody (12/03/2018 12:55 PM EST) Pathologist [facility] [place] Armando Hepatitis C Ab NEGATIVE Reference Range: Negative [facility] 12/03/2018 12:5 5 PM EST 12/03/2018 1:09 PM EST Rafal Conn MD LAB BLOOD ORDERABLES Final Result SUNQUEST from Last 3 Months or Most Recently Relevant to Health Maintenance [facility] [place]
--- OUTSIDE RECORDS SUMMARY | 2025-04-29 07:47 | XMS_ITS | Encounter Summary ---
Author Organization [facility] Address [address] [place] [address] Care Team Providers Care Car Rental Agent Name Role Phone Diane Gutierrez Primary Care Provider Reason for Visit * Reason Comments Med Refill Encounter Details Date Type Department Care Team (Late st Contact Info) Description 01/23/2023 Refill [facility] [address] [place] [address] William Parks MD [address] [place] [address] Renal artery stenosis (CMS/HCC) Social History Tobacco Use Types Packs/Day Years Used Date Smoking Tobacco: Former Smokeless Tobacco: Never Alcohol Use Standard Drinks/Week Comments Never 0 (1 standard drink = 0.6 oz pur e alcohol) PHQ-2 Answer Date Recorded Patient Health Questionnaire-2 Score 0 07/30/2022 Comments Unknown Sex and Gender Information Value Date Recorded Sex Assigned at Not on file Legal Sex Female 7:45 PM EDT Gender Identity Not on file Sexual Orientation Not on file documented as of this encounter Plan of Treatment Not on file documented as of this encounter Visit Diagnoses Diagnosis Renal artery stenosis (CMS/HCC) Atherosclerosis of renal artery documented in this encounter Additional Health Concerns Assessment Noted Time A fall risk assessment has been complete d for the patient 07/30/2022 8:09 AM EDT documented as of this encounter Care Teams Car Rental Agent Relationship Specialty Start Date End Date Diane Gutierrez PA [address] [place] [address] PCP - General Family Medicine 01/03/23 06/10/23 documented as of this encounter
--- NOTE | 2025-04-29 07:49 | MM_ITS ---
PROCEDURE INFORMATION: Exam: MG Bilateral Screening 3D Mammography Exam date and time: 04/29/2025 7:56 AM Age: 69 years old Clinical indication: Screening examination TECHNIQUE: Imaging protocol: Bilateral Screening tomosynthesis and 2D mammography including computer-aided detection (CAD) when performed. COMPARISON: No relevant prior studies available. FINDINGS: MAMMOGRAPHY: Breast composition: There are scattered areas of fibroglandular density. Mass: None. Architectural distortion: None. Calcifications: No suspicious calcifications. Asymmetric density: None. Skin thickening: None. Axillary adenopathy: None. IMPRESSION: No mammographic evidence of malignancy. Annual screening is recommended unless otherwise clinically indicated. ASSESSMENT: BI-RADS Category 1: Negative.
== END 2025-04-29 23:59 | disposition home or self-care (01) ==
LOC: RAD 07:45
PROVIDERS: PCP Nurse Practitioner; Visit Provider Nurse Practitioner
DX: Z12.31 Encounter for screening mammogram for malignant neoplasm of breast (principal); R92.323 Mammographic fibroglandular density, bilateral breasts
CPT/HCPCS: 77063; 77067